=== PATIENT | female | born 1995 | race Caucasian/White ===

== ENCOUNTER 2017-11-22 11:16 | Outpatient (CLI) | payer OTHER | END 2017-11-22 11:17 | disposition home or self-care (01) | LOC: MADLAB 11:16 | PROVIDERS: ATTEND Family Medicine | DX: F32.1 Major depressive disorder, single episode, moderate (principal) | CPT/HCPCS: 36415; 84443 ==

== ENCOUNTER 2017-12-07 20:51 | Emergency (ER) | payer OTHER ==
[2017-12-07] MEDS ORDERED: predniSONE 20 MG TAB ONE (21:34)
== END 2017-12-07 21:38 | disposition home or self-care (01) ==
LOC: MADERS 20:51
DX: J06.9 Acute upper respiratory infection, unspecified (principal); F17.210 Nicotine dependence, cigarettes, uncomplicated; F32.9 Major depressive disorder, single episode, unspecified; Z79.899 Other long term (current) drug therapy
CPT/HCPCS: 99283; J7506

== ENCOUNTER 2018-08-20 01:26 | Emergency (ER) | payer OTHER ==
[2018-08-20] MEDS ORDERED: Sodium Chloride 0.9% 1,000 ML ONE (02:13)
[2018-08-20 02:20] LABS: Bilirubin Negative (Negative); Blood, Urine Negative (Negative); Clarity Clear (Clear); Glucose, Urine (Dipstick) Negative (Negative); Leukocyte Negative (Negative); Nitrite Negative (Negative); Protein, Urine (Dipstick) Negative (Neg-Trace); Specific Gravity, Urine 1.025 (1.005-1.030)
[2018-08-20 02:44] LABS: #Basophils 0.1 thou/uL (0.0-0.2); #Eosinphils 0.1 thou/uL (0.0-0.7); #Monocytes 0.5 thou/uL (0.11-0.59); %Basophils 0.6 % (0.0-1.0); %Eosinophils 1.5 % (0.0-10.0); %Lymphocytes 20.2 % (21.0-51.0); %Monocytes 5.5 % (0.0-10.0); %Neutrophils 72.3 % (42.0-75.0); Hemoglobin 12.6 g/dL (12.0-16.0); Mean Corpuscular HGB CONC 33.7 g/dL (32.0-36.0); Mean Corpuscular Hemoglobin 29.3 pg (27.0-31.0); Mean Corpuscular Volume 86.9 fL (78.0-98.0); Mean Platelet Volume 8.6 fL (7.4-10.4); Platelet Count 256 thou/uL (130-400); Red Blood Cell (RBC) Count 4.29 mill/uL (4.20-5.40); White Blood Cell (WBC) Count 9.7 thou/uL (4.8-10.8)
[2018-08-20 02:58] LABS: ALT (SGPT) 9 U/L (8-55); AST (SGOT) 14 U/L (5-34); Albumin 4.2 g/dL (3.5-5.0); Alkaline Phosphatase 47 U/L (40-150); Anion Gap 13 mmol/L (10-20); BUN (Urea Nitrogen) 8 mg/dL (7.0-18.7); Bilirubin, Total 0.3 mg/dL (0.2-1.2); Calc. Creatinine Clearance 0 mL/min (70-130); Calcium 8.8 mg/dL (7.8-10.44); Chloride 108 mmol/L (98-107); Estimated GFR-MDRD Greater than 90; Globulin 2.6 g/dL (2.4-3.5); Glucose 89 mg/dL (70-105); Lipase 49 U/L (8-78); Potassium 3.4 mmol/L (3.5-5.1); Protein, Total 6.8 g/dL (6.0-8.3); Sodium 139 mmol/L (136-145)
[2018-08-20] MEDS ORDERED: Ondansetron PF 4 MG/2 ML Vial ONE (03:05)
[2018-08-20] MEDS ORDERED: Sodium Chloride 0.9% 100 ML ONE (03:05)
[2018-08-20] MEDS ORDERED: cefTRIAXone\\ROCEPHIN 1 GM VIAL ONE (03:05)
[2018-08-20 03:33] LABS: Carbon Dioxide 21 mmol/L (22-29)
== END 2018-08-20 03:40 | disposition home or self-care (01) ==
LOC: MADERS 01:26
DX: O21.9 Vomiting of pregnancy, unspecified (principal); O99.344 Other mental disorders complicating childbirth; O99.331 Smoking (tobacco) complicating pregnancy, first trimester; F41.9 Anxiety disorder, unspecified; F32.9 Major depressive disorder, single episode, unspecified; Z79.2 Long term (current) use of antibiotics; Z3A.01 Less than 8 weeks gestation of pregnancy
CPT/HCPCS: 80053; 81003; 83605; 83690; 84702; 85025; J0696; J2405; J3490; J7050